=== PATIENT | male | born 1990 | race African-American/Black ===

== ENCOUNTER 2021-08-07 08:01 | Emergency (ER) | payer OTHER ==
[2021-08-07] MEDS: Diphtheria,Pertussis(Acell),Tetanus Vaccine 0.5 ML Syringe IM ONE (08:17)
== END 2021-08-07 08:40 | disposition home or self-care (01) ==
LOC: LL.ED 08:01
DX: S61.211A Laceration without foreign body of left index finger without damage to nail, initial encounter (principal); Z23 Encounter for immunization; W26.8XXA Contact with other sharp object(s), not elsewhere classified, initial encounter
CPT/HCPCS: 12001; 90471; 90715; 99282; 99282-25

== ENCOUNTER → 2021-11-24 | Emergency (ER) | payer OTHER | LOC: LL.ED 08:00 | DX: M54.6 Pain in thoracic spine (principal) | CPT/HCPCS: 99283 ==

== ENCOUNTER 2021-12-15 22:28 | Emergency (ER) | payer OTHER ==
[2021-12-15] MEDS: Ketorolac 15 MG/ML SDV IVPUSH PRN (23:12)
[2021-12-15] MEDS: Sodium Chloride 0.9% 1,000 ML IV ONE (23:13)
[2021-12-15] MEDS: Ondansetron 4 MG/2 ML SDV IVPUSH ONE (23:13)
[2021-12-15 23:29] LABS: ANION GAP 11.6 meq/L (7-15); CHLORIDE,CL 99 mmol/L (98-107); SODIUM,NA 138 mmol/L (136-145)
[2021-12-15 23:35] LABS: ESTIMATED GFR 113 mL/min (>=60)
[2021-12-16] MEDS: Pantoprazole 40 MG Vial IVPUSH ONE (00:18)
[2021-12-16] MEDS: Sodium Chloride 0.9% 1,000 ML IV ONE (00:18)
[2021-12-16] MEDS: GI Cocktail Oral Solution 30 ML PO ONE (00:18)
== END 2021-12-16 01:50 | disposition home or self-care (01) ==
LOC: LL.ED 22:28
DX: K52.9 Noninfective gastroenteritis and colitis, unspecified (principal); Z72.0 Tobacco use
CPT/HCPCS: 36415; 74019; 80053; 81001; 82150; 83605; 83690; 85025; 96361; 96374; 96375; 99283; 99284-25; A9270-GY; C9113; J1885; J2405; J7030

== ENCOUNTER 2024-04-01 23:18 | Emergency (ER) | payer BC | END 2024-04-01 23:54 | disposition home or self-care (01) | LOC: LL.ED 23:18 | DX: M72.2 Plantar fascial fibromatosis (principal) | CPT/HCPCS: 99283 ==